=== PATIENT | female | born 1995 | race Caucasian/White ===

== ENCOUNTER 2017-02-06 19:59 | Emergency (ER) | payer MEDICAID, OTHER ==
[~2017-02-06] VITALS: Ht 157.5 cm; Wt 86.0 kg
[2017-02-06 20:16] VITALS: Ht 157.5 cm; Wt 86.0 kg
--- NOTE | 2017-02-06 22:53 | RADRPT ---
PROCEDURE: XR Chest. CLINICAL INDICATION: Chest pain. TECHNIQUE: Portable AP semi erect view of the chest was obtained. COMPARISON: None. FINDINGS: The cardiomediastinal silhouette is within normal limits. The lungs are clear. There is no evidenc e for pleural effusion, pneumothorax or pulmonary vascular congestion. The osseous structures are i ntact with no evidence for acute abnormality. RPTAT:HJJR IMPRESSION: No evidence for acute intrathoracic pathology. Physician Madisyn Date Time Electronically viewed and signed by Cody Hatfield Physician on 02/06/2017 22:53 JR/
[2017-02-06] MEDS ORDERED: IBUP-1542 PO (22:55)
--- NOTE | 2017-02-06 23:00 | ERD ---
ER Documentation Chief Complaint Date/Time DATE: 02/06/17 TIME: 22:58 Chief Complaint left shoulder pain x 3 days, denies recent injury/trauma HPI Patient is an otherwise healthy 21-year-old female who is presenting complaining of chest pain and left shoulder and back pain she has had for 3 days. She denies any trauma. Pain is worse when she takes a deep breath. Denies fever. Denies palpitations. She has not taken any medications for this. Pain is 8 out of 10 reproducible on palpation. ROS All systems reviewed and are negative except as per history of present illness. Medications Home Meds Active Scripts Ibuprofen* (Motrin*) 600 Mg Tab, 600 MG PO Q6H Y for PAIN AND OR ELEVATED TEMP, #30 TAB Prov:SHEILA RODRIGUEZ PA-C 02/06/17 PMhx/Soc Medical and Surgical Hx: pt denies Medical Hx, pt denies Surgical Hx Hx Alcohol Use: No Hx Substance Use: No Hx Tobacco Use: No Smoking Status: Never smoker FmHx Family History: No diabetes Physical Exam Vitals Vital Signs Date Time Temp Pulse Resp B/P Pulse Ox O2 Delivery O2 Flow Rate FiO2 02/06/17 20:16 98.9 105 18 136/69 100 Physical Exam General: well developed, well nourished, alert, nontoxic, no distress Head: normocephalic, atraumatic Neck: Supple, nontender, no lymphadenopathy, no midline tenderness Ears: no tenderness over mastoids bilaterally, TMs nonerythematous, no exudates in canal Oropharynx: no tonsilar erythema or edema, uvula midline, no exudates, no kissing tonsils, no drooling Respiratory: Clear to auscaultation bilaterally, speaks in full sentences, no use of accesory muscles or labored breathing, no rales, ronchi, or wheezing Cardiovascular: RRR, No murmurs GI: soft, non tender, non distended, negative murphys sign, negative mcburneys point tenderness, no cva tenderness bilaterally, no rebound or guarding Procedures/MDM 21-year-old female presents with chest pain. She has no cardiac risk factors or past medical history. Chest x-ray was normal. EKG was normal sinus rhythm with a rate of 96 with no evidence of ST elevation or acute ischemic changes. Her pain is worse with movement and inspiration and therefore I think this is most likely musculoskeletal versus pleuritic chest pain. She was given a prescription for ibuprofen. Recommended this patient follow up with her primary care doctor within 48 hours or return to the emergency room for any worsening of symptoms. However this time I do believe there is suitable for outpatient management. I answered all their questions and they agreed with the plan and were discharged home. Departure Diagnosis: Primary Impression: Chest pain Condition: Stable Patient Instructions: Chest Pain, Uncertain Cause Additional Instructions: Call your primary care doctor TOMORROW for an appointment during the next 1-2 days.See the doctor sooner or return here if your condition worsens before your appointment time. SHEILA RODRIGUEZ PA-C Feb 06, 2017 23:00
[2017-02-06 23:03] VITALS: BP 135/74; PULSE 99; RESP 18; TEMP 98.9
== END 2017-02-06 23:03 | disposition home or self-care (01) ==
LOC: FTE 19:59
DX: R07.9 Chest pain, unspecified (principal)
CPT/HCPCS: 71010; 93005

== ENCOUNTER 2017-05-29 21:14 | Emergency (ER) | payer MEDICAID ==
[~2017-05-29] VITALS: Ht 157.5 cm; Wt 84.5 kg
[~2017-05-29 21:14] MED LIST: IBUP-1542 PO
[2017-05-29 21:23] VITALS: Ht 157.5 cm; Wt 84.5 kg
--- NOTE | 2017-05-29 23:44 | RADRPT ---
PROCEDURE: XR Chest. CLINICAL INDICATION: Chest pain. TECHNIQUE: Single frontal view of the chest was obtained COMPARISON: 02/06/2017 FINDINGS: The heart and mediastinum are within normal limits. The lungs are clear. There is no pleural effusion or pneumothorax. IMPRESSION: No acute disease. RPTAT: [facility] Physician Tiffany Date Time Electronically viewed and signed by Dejuan Jeffers Physician on 05/29/2017 23:44 RS/
[2017-05-29] MEDS ORDERED: IBUP400T22 PO (23:51)
[2017-05-29] MEDS ORDERED: CYCL-319 PO (23:51)
--- NOTE | 2017-05-29 23:57 | RADRPT ---
PROCEDURE: X-ray of the sternum CLINICAL INDICATION: Chest pain TECHNIQUE: 2 views of the sternum COMPARISON: Plain film chest dated today. FINDINGS: No acute fracture or dislocation. Soft tissues unremarkable. IMPRESSION: No acute fracture. RPTAT: [facility]. Physician Tiffany Date Time Electronically viewed and signed by Dejuan Jeffers Physician on 05/29/2017 23:56 RS/
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
[2017-05-30 00:36] VITALS: BP 120/80; PULSE 82; RESP 16
== END 2017-05-30 00:37 | disposition home or self-care (01) ==
LOC: FTE 21:14
DX: S13.4XXA Sprain of ligaments of cervical spine, initial encounter (principal); R07.9 Chest pain, unspecified; V49.50XA Passenger injured in collision with unspecified motor vehicles in traffic accident, initial encounter
CPT/HCPCS: 71010; 71120; Z7502